=== PATIENT | male | born 1995 | race Caucasian/White ===

== ENCOUNTER 2016-12-03 23:20 | Emergency (ER) | payer OTHER ==
[~2016-12-03] VITALS: Ht 172.7 cm; Wt 84.0 kg
[2016-12-03] MEDS ORDERED: SODIUM CHLORIDE 0.9% 1000ML 1,000 ML IV STA ×2 (23:25)
[2016-12-03 23:40] VITALS: TEMP 36.8; O2SAT 95; Ht 172.7 cm; Wt 84.0 kg
[2016-12-03 23:48] LABS: BASO % 0.1 %; BASO ABS # 0.01 K/uL (0-0.2); COMPLETE YES; HEMATOCRIT 46.9 % (42-52); IG% 0.6 %; LYMPH ABS # 1.64 K/uL (1.2-3.4); MEAN CELL VOLUME 87.7 fL (80-100); MEAN CORPUSCULAR HEMOGLOBIN 33.1 pg (25-34); MEAN CORPUSCULAR HGB CONC 37.7 g/dl (32-36); MEAN PLATELET VOLUME 11.2 fL (7.4-10.4); MONO % 6.9 %; NEUT % 83.4 %; PLATELET COUNT 189 K/uL (130-400); RED BLOOD COUNT 5.35 M/uL (4.7-6.1); WHITE BLOOD COUNT 18.15 K/uL (4.8-10.8)
[2016-12-03] MEDS ORDERED: FURO40TA3 PO (23:57)
[2016-12-03 23:58] LABS: INR 1.1 (0.9-1.1); PARTIAL THROMBOPLASTIN RATIO 1.1; PROTHROMBIN TIME (PATIENT) 11.6 SECONDS (9.0-12.0)
[2016-12-03] MEDS ORDERED: LISI-461 PO (23:58)
[2016-12-03] MEDS ORDERED: PANT40TA PO (23:59)
[2016-12-04] MEDS ORDERED: SERT-234 PO
[2016-12-04] MEDS ORDERED: MAGN400T6 PO (00:01)
[2016-12-04] MEDS ORDERED: FENO145T26 PO (00:02)
[2016-12-04] MEDS ORDERED: ASPI81TA28 PO (00:03)
[2016-12-04] MEDS ORDERED: EZET10TA63 PO (00:03)
[2016-12-04] MEDS ORDERED: ALLO100T PO (00:04)
[2016-12-04 00:22] LABS: ALT/SGPT 66 U/L (12-78); AST/SGOT 37 U/L (15-37); BLOOD UREA NITROGEN 25 mg/dl (7-18); CALCIUM 9.5 mg/dl (8.5-10.1); CARBON DIOXIDE 21 mmol/L (21-32); CHLORIDE 101 mmol/L (98-107); GLUCOSE 189 mg/dl (70-99); MAGNESIUM 2.1 mg/dl (1.8-2.4); POTASSIUM 3.6 mmol/L (3.5-5.1); SODIUM 135 mmol/L (136-145)
[2016-12-04 00:27] LABS: ALKALINE PHOSPHATASE 138 U/L (45-117)
[2016-12-04 00:38] LABS: ACETAMINOPHEN < 2 ug/ml (10-30)
[2016-12-04 01:48] LABS: BENZODIAZEPINE, URINE NEG (NEG); COCAINE,URINE NEG (NEG); PHENCYCLIDINE, URINE NEG (NEG)
--- NOTE | 2016-12-04 02:20 | EMERGENCY ROOM VISIT NOTE ---
History First contact with patient: 23:24 Chief Complaint: SEIZURE Stated Complaint: seizure Nursing Triage Summary: EMS reports- patient had a seizure at [facility] while attending a concert tonight. Unknown length of time. Reports he did not hit head. Was drowsy & disoriented for a short time when EMS arrived. Patient denies any alcohol or drug use tonight but friend reported to medic that he took ecstasy tonight. On arrival- Patient is alert & oriented x3. Calm & cooperative. History of Present Illness The patient is a 21 year old male who presents to the Emergency Room with complaints of seizure tonight. Patient states he did ecstasy at 7:55 PM. He took a half a tablet. Patient had a seizure just prior to arrival. He does not recall this event. EMS was summoned. They state that he was postictal after the seizure. Patient does not think he hit his head but is not sure exactly what had happened. Patient states he has not done ecstasy before. No other drugs today. Patient states he feels slightly anxious right now. Patient denies any other medical complaints. Patient denies chest pain, dyspnea , fever, chills, abdominal pain, headache, numbness, tingling. History is also obtained from the police and EMS who states that the patient was postictal after the seizure. Blood sugar was 160 per EMS. Review of Systems See HPI for pertinent positives & negatives. A total of 10 systems reviewed and were otherwise negative. Past Medical/Surgical History None Social History Smoking Status: Never Smoker Smokeless Tobacco Use: No Alcohol Use: occasionally Drug Use: other (ecstasy) Occupation Status: [employer] student Current/Historical Medications No Active Prescriptions or Reported Meds Physical Exam Vital Signs Date Time Temp Pulse Resp B/P (MAP) Pulse Ox O2 Delivery O2 Flow Rate FiO2 12/04/16 01:42 97 14 122/65 99 Room Air 12/04/16 00:50 111 18 97 Room Air 12/04/16 00:31 122 20 117/63 98 Room Air 12/04/16 00:01 132/77 Room Air 12/03/16 23:50 131 18 126/78 93 Room Air 12/03/16 23:40 95 Room Air 12/03/16 23:40 36.8 118 24 122/54 95 Room Air 12/03/16 23:30 137 12/03/16 23:21 122/54 Physical Exam VITALS: Vitals are noted on the nurse's note and reviewed by myself. Vital signs tachycardic. GENERAL: Pleasant anxious-appearing male, in no acute distress, nondiaphoretic, well-developed well-nourished. SKIN: The skin was without rashes, erythema, edema, or bruising. There is no tenting of the skin. Capillary reflex less than 2 seconds. HEAD: Normocephalic atraumatic. EARS: External auditory canals clear, tympanic membranes pearly cortez without erythema or effusion bilaterally. EYES: Dilated pupils that are Pupils equal round and reactive to light and accommodation. Conjunctivae without injection, sclerae without icterus. Extraocular movements intact. NOSE: Patent, turbinates without inflammation or discharge. No sinus tenderness. MOUTH: Mucous membranes moist. Pharynx without erythema or exudate. Uvula midline. Airway patent. Tongue does not deviate. NECK: Supple without nuchal rigidity. No lymphadenopathy. No thyromegaly. Cervical spine is nontender. No JVD. HEART: Tachycardic rate and rhythm without murmurs gallops or rubs. LUNGS: Clear to auscultation bilaterally without wheezes, rales or rhonchi. No dullness to percussion. No retractions or accessory muscle use. ABDOMEN: Positive bowel sounds x 4. Normal tympanic percussion. Soft, nontender, without masses or organomegaly. Hood sign negative. No guarding or rebound tenderness. MUSCULOSKELETAL: No muscle atrophy, erythema, or edema noted. NEURO: Patient was alert and oriented to person place and time. Normal sensation to light and sharp touch. No focal neurological deficits. Medical Decision & Procedures Laboratory Results 12/03/16 23:40 Red Blood Count 5.35, Mean Corpuscular Volume 87.7, Mean Corpuscular Hemoglobin 33.1, Mean Corpuscular Hemoglobin Concent 37.7, Mean Platelet Volume 11.2, Neutrophils (%) (Auto) 83.4, Lymphocytes (%) (Auto) 9.0, Monocytes (%) (Auto) 6.9, Eosinophils (%) (Auto) 0.0, Basophils (%) (Auto) 0.1, Neutrophils # (Auto) 15.14, Lymphocytes # (Auto) 1.64, Monocytes # (Auto) 1.26, Eosinophils # (Auto) 0.00, Basophils # (Auto) 0.01 12/03/16 23:40 Test 12/03/16 23:40 12/04/16 01:07 White Blood Count 18.15 K/uL (4.8-10.8) Red Blood Count 5.35 M/uL (4.7-6.1) Hemoglobin 17.7 g/dL (14.0-18.0) Hematocrit 46.9 % (42-52) Mean Corpuscular Volume 87.7 fL (80-100) Mean Corpuscular Hemoglobin 33.1 pg (25-34) Mean Corpuscular Hemoglobin Concent 37.7 g/dl (32-36) Platelet Count 189 K/uL (130-400) Mean Platelet Volume 11.2 fL (7.4-10.4) Neutrophils (%) (Auto) 83.4 % Lymphocytes (%) (Auto) 9.0 % Monocytes (%) (Auto) 6.9 % Eosinophils (%) (Auto) 0.0 % Basophils (%) (Auto) 0.1 % Neutrophils # (Auto) 15.14 K/uL (1.4-6.5) Lymphocytes # (Auto) 1.64 K/uL (1.2-3.4) Monocytes # (Auto) 1.26 K/uL (0.11-0.59) Eosinophils # (Auto) 0.00 K/uL (0-0.5) Basophils # (Auto) 0.01 K/uL (0-0.2) RDW Standard Deviation 38.7 fL (36.4-46.3) RDW Coefficient of Variation 12.2 % (11.5-14.5) Immature Granulocyte % (Auto) 0.6 % Immature Granulocyte # (Auto) 0.10 K/uL (0.00-0.02) Prothrombin Time 11.6 SECONDS (9.0-12.0) Prothromb Time International Ratio 1.1 (0.9-1.1) Activated Partial Thromboplast Time 27.3 SECONDS (21.0-31.0) Partial Thromboplastin Ratio 1.1 Anion Gap 13.0 mmol/L (3-11) Est Creatinine Clear Calc Drug Dose 95.7 ml/min Estimated GFR () 91.0 Estimated GFR (Non- 78.5 BUN/Creatinine Ratio 19.0 (10-20) Osmolality 292 mOsm/kg (280-300) Calcium Level 9.5 mg/dl (8.5-10.1) Magnesium Level 2.1 mg/dl (1.8-2.4) Total Bilirubin 0.4 mg/dl (0.2-1) Direct Bilirubin < 0.1 mg/dl (0-0.2) Aspartate Amino Transf (AST/SGOT) 37 U/L (15-37) Alanine Aminotransferase (ALT/SGPT) 66 U/L (12-78) Alkaline Phosphatase 138 U/L (45-117) Total Creatine Kinase 385 U/L (39-308) Total Protein 8.3 gm/dl (6.4-8.2) Albumin 4.2 gm/dl (3.4-5.0) Lipase 100 U/L (73-393) Salicylates Level < 1.7 mg/dl (2.8-20) Acetaminophen Level < 2 ug/ml (10-30) Ethyl Alcohol mg/dL < 3.0 mg/dl (0-3) Urine Opiates Screen NEG (NEG) Urine Methadone, Qualitative NEG (NEG) Urine Barbiturates NEG (NEG) Urine Phencyclidine (PCP) Level NEG (NEG) Ur Amphetamine/Methamphetamine POS (NEG) MDMA (Ecstasy) Screen POS (NEG) Urine Benzodiazepines Screen NEG (NEG) Urine Cocaine Metabolite NEG (NEG) Urine Marijuana (THC) POS (NEG) Medications Administered Medications (Trade) Dose Ordered Sig/Deann Route Start Time Stop Time Status Last Admin Dose Admin Sodium Chloride 1,000 ml @ 999 mls/hr Q1H1M STAT IV 12/03/16 23:25 12/04/16 00:25 DC 12/04/16 00:28 999 MLS/HR Sodium Chloride 1,000 ml @ 125 mls/hr Q8H STAT IV 12/03/16 23:25 12/04/16 07:24 12/03/16 23:25 125 MLS/HR ED Course Prior records/ancillary studies reviewed. Triage Nursing notes reviewed. Additional history obtained from EMS and police. The patient's history was concerning for altered mental status and probable overdose. Differential diagnosis: Etiologies such as toxicologic, infection, hypoglycemia, electrolyte abnormalities, cardiac sources, intracerebral event, neurologic, as well as others were entertained. Physical examination: The patient had normal sensorium. No trauma noted. ER treatment provided: IV NSS 1 L bolus IV hydration NSS 125 mL/hr On reassessment the patient was stable and improving. Diagnostic interpretation by me: The electrocardiogram was no QRS widening or interval prolongation. P-wave inversions in the ear leads, P-wave inversions in the lateral leads, no acute ST -T wave changes, rate of 126. Impression sinus tachycardia with P-wave inversions in the inferior and lateral leads interpreted by myself. Repeat EKG is unchanged signs ventricular rate of 99 The labs revealed positive drug screen for ecstasy, amphetamines and marijuana Imaging studies: Negative head CT per radiology Chest x-ray with no acute consolidation, pneumothorax or free air per my interpretation This appears to be consistent with an isolated overdose. Patient had a seizure so seizure paperwork for the Department of transportation was filled out and faxed off. Patient was advised no driving until cleared by neurology. He was strongly encouraged to avoid all illegal drugs in the future. Patient was neurovascular and neurologically intact. He is well-appearing. He requested to leave. He is ambulating without difficulties. His friends will care for him. I felt this is reasonable. He was advised follow-up health services in a few days or here in the ER sooner for seizure, chest pains, abdominal pain, worsening signs or symptoms or as needed. By the evaluation outlined above emergent etiologies such as infection, hypoglycemia, electrolyte abnormalities, cardiac sources, intracerebral event, neurologic,as well as others were deemed relatively unlikely. The pt informed about the findings as listed above. All questions were answered and pleased with the treatment. Return instructions were outlined and the patient was discharged in stable condition. Referral: The patient was referred back to their primary care physician for follow-up in 2 to 3 days for a recheck of the current condition. Medical Decision as above Medication Reconcilliation Current Medication List: was personally reviewed by me Blood Pressure Screening Patient's blood pressure: Normal blood pressure Impression Primary Impression: Ecstasy abuse Additional Impression: Seizure Departure Information Dispostion Home / Self-Care Condition GOOD Prescriptions No Active Prescriptions or Reported Meds Referrals No Doctor, Assigned (PCP) Patient Instructions My [facility] Additional Instructions DO NOT drive, drink alcohol, operate machinery, or perform dangerous activities today. You were given medications in the ER that can affect your ability to safely function or operate a vehicle. You cannot drive until cleared by neurology. Paperwork was faxed off to the state as you had a seizure tonight. Recommend no illegal drugs in the future. Rest and drink plenty of fluids as tolerated. Continue current medications. Return to the ER immediately for seizures, abdominal pain, vomiting, fevers, chest pains, difficulty breathing, worsening of your condition, or as needed. Follow up with your primary physician and neurology in 2-3 days for a recheck of your current condition. Problem Qualifiers
[2016-12-04 02:44] VITALS: BP 140/65; PULSE 90; O2SAT 98
--- NOTE | 2016-12-04 06:42 | DIAGNOSTIC IMAGING REPORT ---
CHEST ONE VIEW PORTABLE CLINICAL HISTORY: AMS, seizure dyspnea COMPARISON STUDY: No previous studies for comparison. FINDINGS: The bones soft tissues and hemidiaphragms are normal. The cardiomediastinal silhouette is normal. The lungs are clear. The pulmonary vasculature is normal. IMPRESSION: Negative chest. The above report was generated using voice recognition software. It may contain grammatical, syntax or spelling errors. Electronically signed by: Steven Castellano M.D. 12/04/2016 6:41 AM Dictated Date/Time: 12/04/2016 6:41 AM
--- NOTE | 2016-12-04 06:42 | DIAGNOSTIC IMAGING REPORT ---
HEAD WITHOUT CONTRAST (CT) CT DOSE: 537.48 mGy.cm HISTORY: Mental status change AMS, seizure TECHNIQUE: Multiaxial CT images of the head were performed without the use of intravenous contrast. A dose lowering technique was utilized adhering to the principles of ALARA. Comparison: None. Findings: The paranasal sinuses and mastoid air cells are clear. The calvarium and skull base are intact. The ventricles and sulci are within normal limits. There is no mass, hematoma, midline shift, or acute infarct. Impression: No acute intracranial abnormality. The above report was generated using voice recognition software. It may contain grammatical, syntax or spelling errors. Electronically signed by: Steven Castellano M.D. 12/04/2016 6:40 AM Dictated Date/Time: 12/04/2016 6:39 AM
== END 2016-12-04 02:38 | disposition home or self-care (01) ==
LOC: C.EDB 23:22
DX: F19.10 Other psychoactive substance abuse, uncomplicated (principal); R56.9 Unspecified convulsions

== ENCOUNTER → 2017-01-02 | Outpatient (CLI) | payer OTHER ==
--- NOTE | 2017-01-02 10:02 | DIAGNOSTIC IMAGING REPORT ---
ULTRASOUND RIGHT UPPER QUADRANT ABDOMEN CLINICAL HISTORY: Elevated hepatic transaminases. COMPARISON STUDY: No priors. TECHNIQUE: Real-time, grayscale, and color flow sonography of the right upper quadrant of the abdomen was performed. Images are reviewed in the transverse and longitudinal planes. FINDINGS: Liver: The liver is normal in size and echotexture. There is no intrahepatic biliary ductal dilatation. The main portal vein is patent. Gallbladder: The gallbladder is normal in appearance. No gallstones are identified. There is no gallbladder wall thickening or pericholecystic fluid. A sonographic Hood's sign is reportedly absent. The common bile duct measures up to 0.5 cm in diameter. Pancreas: Visualized portions of the pancreatic head and body are normal in appearance. The splenic vein is patent. Right kidney: Survey images of the right kidney demonstrate normal size and echotexture. There is no hydronephrosis. Ascites: None. IMPRESSION: Unremarkable sonographic assessment of the right upper quadrant. No gallstones are identified. Electronically signed by: Sam Smiley M.D. 01/02/2017 10:00 AM Dictated Date/Time: 01/02/2017 10:00 AM
== END | disposition home or self-care (01) ==
LOC: C.ULTR 08:54
PROVIDERS: ATTEND Internal Medicine
DX: Z20.5 Contact with and (suspected) exposure to viral hepatitis (principal); R94.5 Abnormal results of liver function studies